=== PATIENT | male | born 1970 | race Caucasian/White ===

== ENCOUNTER → 2016-10-02 | Outpatient (CLI) | payer BC ==
[2016-10-02 08:56] LABS: BASOPHILS # (AUTO) 0.03 10*3/UL; BASOPHILS % (AUTO) 0.5 % (0-1); EOSINOPHILS % (AUTO) 2.7 % (0-8); HEMATOCRIT 41.8 % (42.0-52.0); IMM GRAN % (AUTO) 0.2 % (0-5); IMM GRAN# (AUTO) 0.01 10*3/UL; LYMPHOCYTES # (AUTO) 1.58 10*3/uL; LYMPHOCYTES % (AUTO) 24.8 % (10-50); MEAN CORPUSCULAR HEMOGLOBIN 30.1 PG (27-31); MEAN CORPUSCULAR HGB CONC 35.9 g/dL (33-37); MEAN PLATELET VOLUME 9.8 FL (7.4-12.2); MONOCYTES # (AUTO) 0.57 10*3/UL (0.3-0.8); NEUTROPHILS % (AUTO) 62.8 % (50-80); RDW COEFFICIENT OF VARIATION 14.2 % (11.5-14.5); RED BLOOD COUNT 4.99 10^6/uL (4.70-6.10); WHITE BLOOD COUNT 6.36 10^3/uL (4.8-10.8)
[2016-10-02 08:57] LABS: PLATELET MORPHOLOGY COMMENT NORMAL MORPHOLOGY (NORM)
[2016-10-02 09:09] LABS: BILIRUBIN,TOTAL 0.7 mg/dL (0.3-1.2); BUN/CREATININE RATIO 11.05 (6-20); CALCIUM 9.2 mg/dL (8.7-10.7); CREATININE 1.9 mg/dL (0.70-1.50); LDL CHOLESTEROL,CALCULATED 64.4 mg/dL; POTASSIUM 3.6 meq/L (3.8-5.2); TOTAL PROTEIN 6.6 g/dL (6.1-8.0)
[2016-10-02 09:14] LABS: HEMOGLOBIN A1C 6.94 % (4.2-6.0); MEAN BLOOD GLUCOSE (CALC) 145.102 mg/dL
[2016-10-02 11:14] LABS: BILIRUBIN,URINE NEGATIVE (NEG); CLARITY,URINE CLEAR (CLEAR); GLUCOSE, URINE (UA) 100 mg/dL (NEG); LEUKOCYTE ESTERASE ,URINE NEGATIVE (NEG); NITRATE,URINE NEGATIVE (NEG); OCCULT BLOOD,URINE NEGATIVE (NEG); PROTEIN,URINE >300 mg/dl (NEG); UROBILINOGEN,URINE 0.2 mg/dL (0.2)
[2016-10-02 11:18] LABS: CREATININE, URINE 155.6 MG/DL (15-500)
[2016-10-02 11:39] LABS: URINE SAMPLE TYPE CLEAN CATCH URINE
[2016-10-02 11:53] LABS: BACTERIA,URINE RARE; SQUAMOUS EPITHELIAL CELL,UR RARE
[2016-10-04 10:17] LABS: PARATHYROID HORMONE 69 pg/mL (15-65)
== END ==
LOC: LAB 08:32
DX: E10.9 Type 1 diabetes mellitus without complications (principal); E10.21 Type 1 diabetes mellitus with diabetic nephropathy; Z79.4 Long term (current) use of insulin; I10 Essential (primary) hypertension; E55.9 Vitamin D deficiency, unspecified; E78.5 Hyperlipidemia, unspecified; E21.3 Hyperparathyroidism, unspecified
CPT/HCPCS: 36415; 80053; 80061; 81001; 82043; 82306; 83036; 83970; 84100; 84443; 85025

== ENCOUNTER → 2017-01-06 | Outpatient (CLI) | payer BC ==
[2017-01-06 16:41] LABS: HEMOGLOBIN A1C 6.29 % (4.2-6.0)
[2017-01-06 16:42] LABS: BUN/CREATININE RATIO 14.7 (6-20); CALCIUM 9.4 mg/dL (8.7-10.7)
== END ==
LOC: LAB 16:22
DX: E10.21 Type 1 diabetes mellitus with diabetic nephropathy (principal); Z79.4 Long term (current) use of insulin; I10 Essential (primary) hypertension; Z96.41 Presence of insulin pump (external) (internal)
CPT/HCPCS: 36415; 80048; 83036

== ENCOUNTER → 2017-04-15 | Outpatient (CLI) | payer BC ==
[2017-04-15 08:35] LABS: BUN/CREATININE RATIO 12.77 (6-20); CALCIUM 8.8 mg/dL (8.7-10.7); HEMOGLOBIN A1C 7.06 % (4.2-6.0); SERUM ALBUMIN 3.9 g/dL (3.5-4.8)
== END ==
LOC: LAB 08:08
DX: E10.9 Type 1 diabetes mellitus without complications (principal); Z79.4 Long term (current) use of insulin; R53.83 Other fatigue; I10 Essential (primary) hypertension; E78.5 Hyperlipidemia, unspecified
CPT/HCPCS: 36415; 80053; 83036; 84403

== ENCOUNTER 2018-07-27 06:30 | Observation (INO) ==
[~2018-07-27 06:30] MED LIST: LIDOCAINE W/ SODIUM BICARB 0.5 ML SYR ONE; LIDOCAINE W/ SODIUM BICARB 0.5 ML SYR SUBD PRN; Lactated Ringers 1,000 ML PRIMARY IV ONE
[2018-07-27] MEDS: Lactated Ringers 1,000 ML PRIMARY IV SCH ×2 (06:51→16:28)
[2018-07-27] MEDS ORDERED: REMIFENTANIL 1 MG/1 ML IV ONE (07:28)
[2018-07-27] MEDS ORDERED: MIDAZOLAM HCL 2 MG/2 ML VIAL ONE (07:28)
[2018-07-27] MEDS ORDERED: fentaNYL Inj 250 MCG/5 ML VIAL ONE (07:28)
[2018-07-27] MEDS ORDERED: Sodium Chloride 0.9% vial 20 ML ONE (07:29)
[2018-07-27] MEDS ORDERED: PROPOFOL 10 MG/1 ML (200 MG/20 ML) VIAL IV ONE (07:30)
[2018-07-27] MEDS ORDERED: OXYMETAZOLINE 0.05% 15 ML NASAL SPRAY ONE (08:08)
[2018-07-27] MEDS ORDERED: LIDOCAINE HCL 1%/EPI 1:100,000 - 20 ML VIAL ONE (08:09)
[2018-07-27] MEDS ORDERED: Sodium Chloride 0.9% 0 ML PRIMARY IV ONE (08:09)
[2018-07-27] MEDS ORDERED: ceFAZolin 1 GM VIAL ONE (08:35)
[2018-07-27] MEDS ORDERED: ePHEDrine Inj 50 MG/ML AMP ONE (08:36)
[2018-07-27] MEDS ORDERED: ceFAZolin Inj 2gm (Premix) 2 GM/50 ML BAG IV ONE (08:48)
[2018-07-27] MEDS ORDERED: BACITRACIN 0.9 GM PACKET OINT TOPICAL ONE (08:49)
[2018-07-27] MEDS ORDERED: ceFAZolin Inj 2 GM in Sodium Chloride 0.9% 100 ML IV ONE (08:49)
[2018-07-27] MEDS ORDERED: ONDANSETRON 4 MG/2 ML VIAL ONE (08:54)
[2018-07-27] MEDS ORDERED: PHENYLEPHRINE 10,000 MCG/1 ML VIAL ONE (08:57)
[2018-07-27] MEDS ORDERED: Sodium Chloride 0.9% vial 10 ML ONE (08:57)
[2018-07-27] MEDS ORDERED: Bacitracin Oint 14.2 gm tube 14 APPLIC/14.2 GM TUBE TOPICAL ONE (09:07)
[2018-07-27] MEDS ORDERED: ACETAMINOPHEN 325 MG TABLET PO PRN (09:33)
--- NOTE | 2018-07-27 09:40 | ENT.OPNOTE ---
Operative Note -: See Dictated Operative Report
[2018-07-27] MEDS ORDERED: Sodium Chloride 0.9% 1,000 ML PRIMARY IV ONE (09:54)
--- NOTE | 2018-07-27 10:40 | CONSULT ---
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 He is postop from the nasal surgery because was unable to use CPAP any longer for his sleep apnea. He is a feeling well at present time he is coherent he only complains of some upper teeth pain and he is getting treated for this is a sugars are now 200 on his pump denies any chest pain nausea or vomiting Past Medical History Medical History: Diabetes, left lower leg prosthesis from an accident many years ago Tobacco Use: Never Smoker In the Past 12 Months, Have Used or Abuse Any of the Following Substance: None Alcohol Use: None Review of Systems - Review of Systems All Systems: Reviewed & No Additional Complaints Except as Stated - Respiratory Respiratory: DENIES: Negative System Review, Cough, Sputum, Dyspnea At Rest, Dyspnea with Exertion, Pleuritic Pain, Hemoptysis, Wheezing, Other, See HPI - Cardiovascular Cardiovascular: DENIES: Negative System Review, Chest Pain, Edema, Syncope, Palpitations, Orthopnea, Paroxysmal Nocturnal Dyspnea, Other, See HPI - Gastrointestinal Gastrointestinal / Abdominal: DENIES: Negative System Review, Nausea, Vomiting, Diarrhea, Constipation, Abdominal Pain, Bloody Stool, Poor Appetite, Heartburn, Regurgitation, Bloating, Lactose Intolerance, Melena, Bright Red Blood per Rectum, Other, See HPI Medication / Allergies Home Medications: Home Medications 3 Medication Instructions Recorded Confirmed Type Glucagon,Human Recombinant 1 mg IJ PRN #2 ea 01/13/14 07/27/18 History [Glucagon Emergency Kit] blood sugar diagnostic strips 1 strip MISCELLANEOUS QID PRN #125 05/14/17 History strip allopurinol 100 mg tablet 100 mg PO QDAY #90 tab 06/16/17 07/27/18 Rx aspirin 81 mg tablet,delayed 81 mg PO QDAY tab 06/16/17 07/27/18 History release cholecalciferol (vitamin D3) 1,000 2,000 unit PO QDAY #30 cap 09/22/17 07/27/18 History unit capsule clindamycin phosphate 1 % topical 1 applic TOPICAL BID PRN #60 ml 09/22/1707/27 Rx solution ranitidine 75 mg tablet 75 mg PO QDAY PRN tab 09/22/17 07/27/18 History spironolactone 25 mg tablet 25 mg PO QDAY 09/22/17 07/27/18 History triamcinolone acetonide 0.1 % 1 applic TOPICAL BID #30 g 09/22/17 07/27/18 Rx topical cream suvorexant 20 mg tablet 20 mg PO QHS #90 tab 11/14/17 07/27/18 Rx insulin lispro (U-100) 100 unit/mL 100 unit SUBCUT QD #3 vial 11/21/17 07/27/18 Rx subcutaneous solution diltiazem CD 120 mg 120 mg PO QDAY #30 cap 01/05/18 07/27/18 Rx capsule,extended release 24 hr terazosin 5 mg capsule 5 mg PO BID #180 cap 02/03/18 07/27/18 Rx irbesartan 300 mg tablet 300 mg PO QDAY #30 tab 02/13/18 07/27/18 Rx ipratropium bromide 42 mcg (0.06 2 spray INASL TID #15 ml 03/05/18 07/27/18 Rx %) nasal spray pentoxifylline ER 400 mg 400 mg PO BID 03/31/18 07/27/18 History tablet,extended release rosuvastatin 20 mg tablet 20 mg PO QDAY #90 tab 06/16/18 07/27/18 Rx hydrochlorothiazide 25 mg tablet 25 mg PO QDAY #30 tab 07/08/18 07/27/18 Rx Blood Sugar Diagnostic [Contour 0 .ROUTE .MEDSUPPLY 07/27/18 History Test Strip] Allergies/Adverse Reactions: Allergies 3 Allergy/AdvReac Type Severity Reaction Status Date / Time No Known Drug Allergies Allergy NOT Verified 07/27/18 06:38 APPLICABLE Exam - Vitals Vital Signs: Vital Signs Temperature 97.7 F Pulse Rate 77 Respiratory Rate 16 Blood Pressure 133/88 Pulse Ox 96 Oxygen Flow Rate RA Height 6 ft 2 in Weight 227 lb - General General Appearance: No Acute Distress, Cooperative - Respiratory Respiratory Exam: POSITIVE: Clear to Auscultation - Bilaterally, Breathing Non Labored, Normal To Percussion, Normal to Percussion and Palpation - Cardiovascular Cardiovascular Exam: POSITIVE: RRR, No Murmur, No Clicks, No Gallops, No Rubs, PMI Non-Displaced - GI/Abdominal GI/Abdominal Exam: POSITIVE: Normal Bowel Sounds, Non Tender, Non Distended, Soft, No Masses, No Hepatomegaly, No Splenomegaly, No Organomegaly Assessment and Plan - Patient Problems (1) Diabetes mellitus type 1 Current Visit: No Status: Acute Onset Date: 07/22/11 Comment: Patient has a insulin pump sugars are doing great at present time no changes Code(s): E10.9 - Type 1 diabetes mellitus without complications Qualifiers: Diabetes mellitus complication status: with kidney complications Diabetes mellitus complication detail: with chronic kidney disease (2) Benign essential hypertension Current Visit: No Status: Acute Onset Date: 07/22/11 Comment: Stable at present time Code(s): I10 - Essential (primary) hypertension (3) Diabetic renal disease Current Visit: No Status: Acute Onset Date: 07/14/13 Comment: And it was 1.4 a few years back now to 1.8 will hydrate the patient hopefully some of this could be prerenal Code(s): E11.21 - Type 2 diabetes mellitus with diabetic nephropathy (4) History of left below knee amputation Current Visit: No Status: Acute Code(s): Z89.512 - Acquired absence of left leg below knee - Assessment / Plan Additional Assessment/Plan Details: Patient seen in recovery area at the bedside nurse Paola as well
[2018-07-27] MEDS ORDERED: HYDROcodone-APAP 5 MG -325 MG TABLET PO ONE (10:45)
[2018-07-27] MEDS: HYDROcodone-APAP 5 MG -325 MG TABLET PO PRN ×5 (10:48→23:39)
--- NOTE | 2018-07-27 11:07 | CRNA.PROGR ---
Anesthesia Time - Procedure/Recovery Time Start Date: 07/27/18 End Date: 07/27/18 Anesthesia : Time In: 08:16 Anesthesia : Time Out: 09:33 Anesthesia : Total Time: 77 - Total Anesthesia Time Total Anesthesia Time (minutes): 77 - Other Weight: 102.965 kg Height: 6 ft 2 in Body Mass Index (BMI): 29.1 Physical Status: P2 Anesthesia Type: General Anesthesia : ET
--- NOTE | 2018-07-27 11:07 | CRNA.PROGR ---
Post Anesthesia Phase II - Post Anesthesia Phase II Patient Stable and Discharged To: Phase II Care Assumed By Surgeon: Ian Cabrera MD Temperature: 97.7 F Pulse Rate: 77 Respiratory Rate: 16 Blood Pressure: 133/88 Pulse Ox: 96 Total Azra Score at Discharge: 10 Post Anesthesia Discharge Criteria Met: Yes
[2018-07-28] MEDS: Lactated Ringers 1,000 ML PRIMARY IV SCH (02:31)
[2018-07-28] MEDS: HYDROcodone-APAP 5 MG -325 MG TABLET PO PRN ×2 (03:28→07:42)
[2018-07-28 07:48] VITALS: BP 144/98; RESP 16; TEMP 97.5; O2SAT 96
[2018-07-28] MEDS ORDERED: HYDROCHLOROTHIAZIDE 25 MG TABLET PO ONE (08:04)
--- NOTE | 2018-07-28 09:56 | PDOC(PROG) ---
Interval History: Patient is doing great had no issues overnight he sugars are stabilized his pump is working perfectly no chest pain nausea vomiting Objective : Exam - Respiratory Respiratory Exam: Clear to Auscultation - Bilaterally, Breathing Non Labored, Normal To Percussion, Normal to Percussion and Palpation - Cardiovascular Cardiovascular Exam: RRR, No Murmur, No Clicks, No Gallops, No Rubs, PMI Non- Displaced - GI/Abdominal GI/Abdominal Exam: Normal Bowel Sounds, Non Tender, Non Distended, Soft, No Masses, No Hepatomegaly, No Splenomegaly, No Organomegaly Assessment and Plan - Patient Problems (1) Diabetes mellitus type 1 Current Visit: No Status: Acute Onset Date: 07/22/11 Comment: Stable pump is working correctly sugars are stable patient has been discharged home by Dr. Cabrera. He will follow-up with his primary care physician and Dr. Cabrera I will sign off thank you for the consult Code(s): E10.9 - Type 1 diabetes mellitus without complications Qualifiers: Diabetes mellitus complication status: with kidney complications Diabetes mellitus complication detail: with chronic kidney disease (2) Benign essential hypertension Current Visit: No Status: Acute Onset Date: 07/22/11 Code(s): I10 - Essential (primary) hypertension (3) Diabetic renal disease Current Visit: No Status: Acute Onset Date: 07/14/13 Code(s): E11.21 - Type 2 diabetes mellitus with diabetic nephropathy (4) History of left below knee amputation Current Visit: No Status: Acute Code(s): Z89.512 - Acquired absence of left leg below knee
== END 2018-07-28 09:08 | disposition home or self-care (01) ==
LOC: OR 06:30 → MED/SURG 06:30
PROVIDERS: ADMIT Otolaryngology; ATTEND Otolaryngology